=== PATIENT | female | born 1930 | race Caucasian/White ===

== ENCOUNTER 2020-11-17 12:06 | Observation (INO) | payer OTHER ==
[2020-11-17] MEDS ORDERED: CEFTRIAXONE 1000 MG/VIAL ONE ×2 (13:23→20:33)
[2020-11-17] MEDS ORDERED: NA CHLORIDE 0.9% 1,000 ML ONE ×2 (13:23→16:52)
--- NOTE | 2020-11-17 14:18 | RAD REPORT ---
EXAM DESCRIPTION: RAD - Chest Single View - 11/17/2020 1:36 pm CLINICAL HISTORY: SOB COMPARISON: Chest Pa And Lat (2 Views) dated 11/09/2020 FINDINGS: Re- demonstrated possible right-sided lung mass with irregular opacities throughout the ri ght lung. The left lung is clear. Aortic atherosclerosis. No fractures seen. Visualized upper abdomen is unremarkable. IMPRESSION: Possible right-sided lung mass and other irregular opacities in the right lung. Chest CT could further evaluate.
[2020-11-17 15:00] LABS: ALT/SGPT 44 U/L (12-78); AST/SGOT 25 U/L (15-37); Albumin 4.3 g/dL (3.4-5.0); Alkaline Phosphatase 74 U/L (45-117); BUN Blood Urea Nitrogen 12 mg/dL (7-18); Bicarbonate 16 mmol/L (21-32); Bilirubin Direct 0.2 mg/dL (0-0.2); Bilirubin Total 1.2 mg/dL (0.2-1.0); Glucose Level 166 mg/dL (74-106); Magnesium 2.5 mg/dL (1.8-2.4); NT PRO-BNP 23 pg/mL (<450); Potassium 3.5 mmol/L (3.5-5.1); Protein, Total 8.3 g/dL (6.4-8.2); Sodium Level 139 mmol/L (136-145); Troponin (Emerg Dept Use Only) < 0.02 ng/mL (0.0-0.045)
[2020-11-17 15:26] LABS: Absolute Lymphocytes (CBC) 2.1 K/uL (0.7-4.9); Basophils % 0.8 % (0-1.3); Hematocrit 35.1 % (36.0-45.0); Lymphocytes % 21.3 % (15.3-44.8); MPV 10.4 fL (7.6-11.3); RBC Red Blood Cell Count 3.94 M/uL (3.86-4.86)
[2020-11-17 15:31] LABS: Protime INR 1.23
[2020-11-17 15:52] LABS: Urine Bacteria <20 /HPF (<20); Urine RBC <5 /HPF (NONE SEEN)
--- NOTE | 2020-11-17 16:46 | ER ---
Nurse's Notes [facility] Name: Anh Lockwood Age: 89 yrs Sex: Female : 1930 Arrival Date: 11/17/2020 Time: 12:20 Bed 13 Private MD: Diagnosis: Muscle weakness (generalized);Acute cystitis Presentation: 11/17 12:21 Chief complaint: EMS states: Fatigue, weakness, SOB. recently diagnosed with a UTI on oh thursday. Coronavirus screen: Vaccine status: Patient reports receiving the 2nd dose of the covid vaccine. Ebola Screen: No symptoms or risks identified at this time. Initial Sepsis Screen: Does the patient meet any 2 criteria? No. Patient's initial sepsis screen is negative. Does the patient have a suspected source of infection? Yes: Dysuria/Frequency/Urgency/UTI. Risk Assessment: Do you want to hurt yourself or someone else? Patient reports no desire to harm self or others. Onset of symptoms was November 10, 2020. 12:21 Method Of Arrival: EMS: [facility] [place] 12:21 Acuity: MAITE 3 oh Triage Assessment: 12:27 General: Appears comfortable, Behavior is calm, cooperative, appropriate for age, oh Reports Weakness x 1 week, recently diagnosed with UTI, per pt found a spot on her kidney scheduled for a CT on thursday. Pain: Denies pain. Respiratory: Reports shortness of breath. Historical: - Allergies: 12:26 No Known Allergies; oh - Immunization history:: Adult Immunizations up to date, Client reports receiving the 2nd dose of the Covid vaccine, . - Social history:: Smoking status: Patient denies any tobacco usage or history of. - Family history:: not pertinent. Screenin:29 Abuse screen: Denies threats or abuse. Nutritional screening: No deficits noted. oh Tuberculosis screening: No symptoms or risk factors identified. Fall Risk Gait- Weak (10 pts.). Assessment: 12:28 Cardiovascular: Reports fatigue, shortness of breath, stent placed 1 year ago. oh Respiratory: Reports shortness of breath. 12:30 Cardiovascular: Rhythm is sinus rhythm. oh 17:53 Reassessment: report given to MARY montoya. oh Vital Signs: 12:21 BP 127 / 61; Pulse 80; Resp 20; Pulse Ox 96% on R/A; Weight 81.65 kg; Height 5 ft. 5 oh in. (165.10 cm); Pain 0/10; 17:54 BP 104 / 54; Pulse 78; Resp 19; Temp 97.3; Pulse Ox 100% on 1 lpm NC; oh 12:21 Body Mass Index 29.95 (81.65 kg, 165.10 cm) oh ED Course: 12:20 Patient arrived in ED. oh 12:23 Inserted saline lock: 20 gauge in left antecubital area, using aseptic technique. Blood oh collected. 12:24 Oumou Presley MD is Attending Physician. ma2 12:26 Triage completed. oh 12:29 Patient has correct armband on for positive identification. Placed in gown. Bed in low oh position. Call light in reach. Side rails up X2. Adult w/ patient. 12:30 Christian Plasencia, MARY is Primary Nurse. oh 13:30 Blood Culture Adult (2) Sent. oh 13:36 XRAY Chest (1 view) In Process Unspecified. EDMS 16:45 Lc Huerta MD is Hospitalizing Provider. ma2 Administered Medications: 12:32 Drug: NS 0.9% 1000 ml Route: IV; Rate: 1 bolus; Site: left antecubital; oh 13:30 Drug: Rocephin (cefTRIAXone) 1 grams Route: IV; Rate: calculated rate; Site: left oh antecubital; Outcome: 16:46 Decision to Hospitalize by Provider. ma2 17:55 Admitted to Med/surg oh 17:55 Condition: stable 18:16 Patient left the ED. oh Signatures: Dispatcher [employer] EDMS Oumou Presley MD MD ma2 Christian Plasencia, RN RN oh Corrections: (The following items were deleted from the chart) 13:36 12:55 CORONAVIRUS+LABDOMINGO drawn and sent. oh EDMS
--- NOTE | 2020-11-17 16:46 | EDPHYS ---
Physician Documentation [facility] Name: Anh Lockwood Age: 89 yrs Sex: Female : 1930 Arrival Date: 11/17/2020 Time: 12:20 Bed 13 Private MD: ED Physician Oumou Presley HPI: 11/17 12:49 This 89 yrs old Female presents to ER via EMS with complaints of weakness. ma2 12:49 Onset: The symptoms/episode began/occurred gradually, 1 day(s) ago. Associated signs ma2 and symptoms: Pertinent negatives: productive cough, fever, hemoptysis, nausea. Severity of symptoms: At their worst the symptoms were moderate in the emergency department the symptoms are unchanged. The patient has not experienced similar symptoms in the past. Patient is being treated for UTI, with oral antibiotics, presented with generalized weakness for 1 day,. Historical: - Allergies: 12:26 No Known Allergies; oh - Immunization history:: Adult Immunizations up to date, Client reports receiving the 2nd dose of the Covid vaccine, . - Social history:: Smoking status: Patient denies any tobacco usage or history of. - Family history:: not pertinent. ROS: 12:49 Constitutional: Negative for fever, chills, and weight loss. ma2 12:49 All other systems are negative. Exam: 12:49 Constitutional: This is a well developed, well nourished patient who is awake, alert, ma2 and in no acute distress. Head/Face: Normocephalic, atraumatic. Eyes: Pupils equal round and reactive to light, extra-ocular motions intact. Lids and lashes normal. Conjunctiva and sclera are non-icteric and not injected. Cornea within normal limits. Periorbital areas with no swelling, redness, or edema. ENT: Nares patent. No nasal discharge, no septal abnormalities noted. Tympanic membranes are normal and external auditory canals are clear. Oropharynx with no redness, swelling, or masses, exudates, or evidence of obstruction, uvula midline. Mucous membranes moist. Neck: Trachea midline, no thyromegaly or masses palpated, and no cervical lymphadenopathy. Supple, full range of motion without nuchal rigidity, or vertebral point tenderness. No Meningismus. Chest/axilla: Normal chest wall appearance and motion. Nontender with no deformity. No lesions are appreciated. Cardiovascular: Regular rate and rhythm with a normal S1 and S2. No gallops, murmurs, or rubs. Normal PMI, no JVD. No pulse deficits. Respiratory: Lungs have equal breath sounds bilaterally, clear to auscultation and percussion. No rales, rhonchi or wheezes noted. No increased work of breathing, no retractions or nasal flaring. Abdomen/GI: Soft, non-tender, with normal bowel sounds. No distension or tympany. No guarding or rebound. No evidence of tenderness throughout. Back: No spinal tenderness. No costovertebral tenderness. Full range of motion. Skin: Warm, dry with normal turgor. Normal color with no rashes, no lesions, and no evidence of cellulitis. MS/ Extremity: Pulses equal, no cyanosis. Neurovascular intact. Full, normal range of motion. Neuro: Awake and alert, GCS 15, oriented to person, place, time, and situation. Cranial nerves II-XII grossly intact. Motor strength 5/5 in all extremities. Sensory grossly intact. Cerebellar exam normal. Normal gait. Vital Signs: 12:21 BP 127 / 61; Pulse 80; Resp 20; Pulse Ox 96% on R/A; Weight 81.65 kg; Height 5 ft. 5 oh in. (165.10 cm); Pain 0/10; 17:54 BP 104 / 54; Pulse 78; Resp 19; Temp 97.3; Pulse Ox 100% on 1 lpm NC; oh 12:21 Body Mass Index 29.95 (81.65 kg, 165.10 cm) oh MDM: 12:49 Differential diagnosis: Bronchitis reactive airway disease, uti sepsis vs electrolyte ma2 abnormalities. 16:44 Data reviewed: vital signs, nurses notes, EMS record, [facility] records. Counseling: ma2 I had a detailed discussion with the patient and/or guardian regarding: the historical points, exam findings, and any diagnostic results supporting the discharge/admit diagnosis, the presence of at least one elevated blood pressure reading (>120/80) during this emergency department visit, the need for further work-up and treatment in the hospital. ED course: Discussed with Dr. Huerta , patient has UTI, likely partially treated, however she has generalized weakness unable to walk due to generalized weakness. She does have right lung mass on chest x-ray, although she does not have any respiratory symptoms at this time, she does need CT chest. To further evaluate. I discussed with Dr. Huerta, will admit the patient with ivf and ab and order ct chest . 16:46 Patient medically screened. sc2 11/17 12:27 Order name: Basic Metabolic Panel; Complete Time: 16:05 sc2 11/17 12:27 Order name: CBC with Diff; Complete Time: 15:53 sc2 11/17 12:27 Order name: LFT's; Complete Time: 16:05 sc2 11/17 12:27 Order name: Magnesium; Complete Time: 16:05 sc2 11/17 12:27 Order name: NT PRO-BNP; Complete Time: 16:05 sc2 11/17 12:27 Order name: PT-INR; Complete Time: 15:53 sc2 11/17 12:27 Order name: Troponin (emerg Dept Use Only); Complete Time: 16:05 sc2 11/17 12:32 Order name: Blood Culture Adult (2) [facility] 11/17 12:32 Order name: Urine Microscopic Only; Complete Time: 16:05 sc2 11/17 14:09 Order name: Glucose, Ancillary Testing; Complete Time: 14:27 EDMS 11/17 14:28 Order name: SARS-COV-2 RT PCR; Complete Time: 15:05 EDMS 11/17 16:56 Order name: Basic Metabolic Panel [facility] 11/17 16:56 Order name: Basic Metabolic Panel [facility] 11/17 12:27 Order name: XRAY Chest (1 view); Complete Time: 14:27 sc2 11/17 12:27 Order name: EKG; Complete Time: 12:28 sc2 11/17 12:27 Order name: Cardiac monitoring; Complete Time: 12:54 sc2 11/17 12:27 Order name: EKG - Nurse/Tech; Complete Time: 12:54 ma2 11/17 12:27 Order name: IV Saline Lock; Complete Time: 12:54 sc2 11/17 12:27 Order name: Labs collected and sent; Complete Time: 12:54 sc2 11/17 12:27 Order name: O2 Per Protocol; Complete Time: 12:54 sc2 11/17 12:27 Order name: O2 Sat Monitoring; Complete Time: 12:54 sc2 11/17 12:32 Order name: Accucheck; Complete Time: 14:57 ma2 11/17 12:32 Order name: IV Saline Lock - Large Bore; Complete Time: 14:57 ma2 11/17 16:44 Order name: CT Chest W/ Con ma2 11/17 16:56 Order name: CBC with Automated Diff EDMS 11/17 16:56 Order name: CBC with Automated Diff EDMS 11/17 17:11 Order name: CT; Complete Time: 17:16 EDMS 11/17 12:32 Order name: Urine Dipstick-Ancillary (obtain specimen) ma2 11/17 13:03 Order name: Labs - recollect needed: recollect labs hemolyzed; Complete Time: 15:38 eb Administered Medications: 12:32 Drug: NS 0.9% 1000 ml Route: IV; Rate: 1 bolus; Site: left antecubital; oh 13:30 Drug: Rocephin (cefTRIAXone) 1 grams Route: IV; Rate: calculated rate; Site: left oh antecubital; Disposition Summary: 11/17/20 16:46 Hospitalization Ordered Hospitalization Status: Observation sc2 Provider: Lc Huerta [facility] Location: Telemetry/MedSurg (Inpatient) ma2 Condition: Stable ma2 Problem: new ma2 Symptoms: are unchanged ma2 Bed/Room Type: Standard [facility](11/17/20 17:10) eb Diagnosis - Muscle weakness (generalized) ma2 - Acute cystitis ma2 Forms: - Medication Reconciliation Form ma2 - SBAR form ma2 Signatures: Dispatcher [employer] EDLA Oumou Presley MD MD ma2 Nolvia Morley Oneka RN RN oh Corrections: (The following items were deleted from the chart) 13:36 12:28 CORONAVIRUS+BRZ ordered. EDMS EDMS 17:10 16:46 ma2 eb
[2020-11-17] MEDS: NA CHLORIDE 0.9% 1,000 ML IV SCH (17:00)
--- NOTE | 2020-11-17 17:10 | RAD REPORT ---
EXAM DESCRIPTION: CT - Thorax W/ Con - 11/17/2020 5:01 pm CLINICAL HISTORY: right sided lung mass COMPARISON: Chest Single View dated 11/17/2020 FINDINGS: Chest Wall: No suspicious thyroid nodules or pathologic lymphadenopathy. Lungs: Several pulmonary nodules are noted bilaterally. Air bronchograms and masslike subpleural thic kening is present in the right lower lobe. There are other scattered areas of ill-defined opacities. Pleura: Small right pleural effusion. Mediastinum/rayshawn: No pathologic lymphadenopathy. Pulmonary arteries/Aorta: No filling defect identified. No aortic aneurysm. Heart: No significant pericardial effusion. Normal heart size. Multi-vessel coronary artery disease. Upper abdomen: Multiple low-density lesions in the liver. Right renal lesion which is likely a cyst. Bones: No acute abnormality. All CT scans are performed using dose optimization technique as appropriate and may include automated exposure control or mA/KV adjustment according to patient size. IMPRESSION: Right hilar soft tissue and masslike subpleural thickening in the right lower lobe may r epresent a primary bronchogenic carcinoma but can also be seen with round atelectasis. Note that ther e are numerous liver lesions which are highly concerning for metastatic disease. If clinically indica [place], liver biopsy could confirm primary site.
[2020-11-17] MEDS ORDERED: ALPRAZOLAM 0.25 MG TABLET PO PRN (18:33)
[2020-11-17] MEDS ORDERED: NA CHLORIDE 0.9% 50 ML ONE (20:33)
[2020-11-17] MEDS: INSULIN -REGULAR HUMAN 50 UNIT/0.5 ML ML SQ SCH (21:00)
[2020-11-17] MEDS: CEFTRIAXONE 1 GM/NS 50 ML 1 GM/50 ML BAG IV SCH (21:00)
[2020-11-17 21:02] VITALS: BMI 29.9
--- NOTE | 2020-11-17 21:42 | P.HP ---
Certification for Inpatient Patient admitted to: Observation With expected LOS: <2 Midnights Practitioner: I am a practitioner with admitting privileges, knowledge of patient current condition, hospital course, and medical plan of care. Services: Services provided to patient in accordance with Admission requirements found in Title 42 Section 412.3 of the Code of Federal Regulations Patient History Date of Service: 11/17/20 Reason for admission: WEAK, CHILLS History of Present Illness: HAS SYMPTOMS OF CHILLS AND WEAKNESS FOR A FEW DAYS. SHE DOES NOT HAVE COUGH, DYSPNEA OR PAIN. SHE DID NOT IMPROVE WITH Z SONNY SO I ASKED FOR CXR AND LAB WORK. CXR SHOWED A POSSIBLE MASS IN R CHEST, MILD UTI AND MILD DEHYDRATION ON LAB. I ASKED HER TO STOP TORSEMIDE SO CREATININE CAN COME DOWN FROM 1.7. SHE IS SCHEDULED TO DO CT SCAN OF CHEST THURSDAY. SEH ENDS UP IN ER FAMILY THOUGHT SHE WAS GENERALLY WEAK. SHE DOES NOT HAVE ANY OTHER SYMPTOMS. Allergies No Known Allergies Allergy (Verified 11/17/20 18:28) Home medications list reviewed: Yes Home Medications: ALPRAZolam [Xanax] 0.25 mg PO TID PRN 11/17/20 Cholecalciferol (Vitamin D3) [Vitamin D3] 50 mcg PO DAILY 11/17/20 Ibuprofen [Advil] 200 mg PO DAILY 11/17/20 Losartan Potassium [Cozaar] 100 mg PO DAILY 11/17/20 Thyroid Tab [[place] Thyroid] 30 mg PO DAILY 11/17/20 bisoproloL fumarate [Zebeta] 5 mg PO DAILY 11/17/20 - Past Medical/Surgical History Has patient received pneumonia vaccine in the past: Yes Diabetic: No -: HTN -: Hypothyroidism -: Skin CA -: Ana -: Hysterectomy -: thyroidectomy - Family History Mother History Unknown: Yes -: Cancer Father History Unknown: Yes -: Heart disease - Social History Smoking Status: Former smoker Alcohol use: No CD- Drugs: No Caffeine use: Yes Place of Residence: Home Review of Systems 10-point ROS is otherwise unremarkable General: Weakness, Malaise Physical Examination - Vital Signs Temperature: 97.7 F Blood Pressure: 135/61 Pulse: 95 Respirations: 18 Pulse Ox (%): 97 - Physical Exam General: Oriented x3, Mild distress HEENT: Atraumatic, PERRLA, Mucous membr. moist/pink, EOMI, Sclerae nonicteric Neck: Supple, 2+ carotid pulse no bruit, No LAD, Without JVD or thyroid abnormality Respiratory: Clear to auscultation bilaterally, Normal air movement Cardiovascular: Regular rate/rhythm, Normal S1 S2 Gastrointestinal: Normal bowel sounds, No tenderness Musculoskeletal: No tenderness Integumentary: No rashes Neurological: Normal gait, Normal speech, Normal strength at 5/5 x4 extr, Normal tone, Normal affect Lymphatics: No axilla or inguinal lymphadenopathy - Studies Laboratory Data (last 24 hrs) 11/17/20 15:11: PT 14.2 H, INR 1.23 11/17/20 15:11: WBC 9.90, Hgb 11.5 L, Hct 35.1 L, Plt Count 124 L 11/17/20 15:11: Sodium 139, Potassium 3.5, BUN 12, Creatinine 1.45 H, Glucose 166 H, Magnesium 2.5 H, Total Bilirubin 1.2 H, AST 25, ALT 44, Alkaline Phosphatase 74 Assessment and Plan - Problems (Diagnosis) (1) Metastatic lung cancer (metastasis from lung to other site) Current Visit: Yes Status: Acute Plan: HER CT SCAN SHOWS R LUNG MASS AND METASTISTIC LESIONS IN THE LIVER. THIS CAN EXPLAIN HER GEN WEAKNESS. I HAD LONG TALK WITH PATIENT AND DAUGHTER. I ADVISED THAT THE EASIEST WAY TO BIOPSY WILL BE LIVER IT IS EASY TO ACCESS. THEY AGREE. I EXPLAINED THAT STAGE 4 CANCER AT THIS AGE MEANS USUALLY NOT MUCH CAN BE DONE ABOUT IT. I ALSO EXPLAINED QUALITY OF LIFE WITHOUT AND WITH CHEMO AT THIS AGE. I EXPLAINED THAT STAGE 4 CANCERS DON'T NEED SURGERY USUALLY. LUNG CANCER CARRIES POOR PROGNOSIS ESPECIALLY STAGE 4. SHE MAY GO HOME IN [facility] AND DO BIOPSY OUTPT. SHE WILL BE A GOOD HOSPICE CANDIDATE AT 89 WITH [employer] - Advance Directives Does patient have a Living Will: Yes Does patient have a Durable POA for Healthcare: Yes
[2020-11-18] MEDS: CEFTRIAXONE 1 GM/NS 50 ML 1 GM/50 ML BAG IV SCH (00:08)
[2020-11-18] MEDS: NA CHLORIDE 0.9% 1,000 ML IV SCH (06:00)
[2020-11-18] MEDS ORDERED: THYROID 30 MG TAB PO SCH (06:00)
[2020-11-18 06:15] LABS: Absolute Lymphocytes (CBC) 2.1 K/uL (0.7-4.9); Basophils % 0.8 % (0-1.3); Hematocrit 33.4 % (36.0-45.0); Lymphocytes % 22.7 % (15.3-44.8); MPV 10.8 fL (7.6-11.3); RBC Red Blood Cell Count 3.71 M/uL (3.86-4.86)
[2020-11-18 06:35] VITALS: O2SAT 91
[2020-11-18 06:49] LABS: Potassium 3.8 mmol/L (3.5-5.1)
[2020-11-18] MEDS: INSULIN -REGULAR HUMAN 50 UNIT/0.5 ML ML SQ SCH (07:30)
[2020-11-18] MEDS ORDERED: NA CHLORIDE 0.9% 1,000 ML IV SCH (07:48)
[2020-11-18 08:17] VITALS: BP 142/63; TEMP 98
[2020-11-18] MEDS ORDERED: HOME MED 1 EA UNK (Cholecalciferol (Vitamin D3) [Vitamin D3] 50 MCG Capsule) PO SCH (09:00)
[2020-11-18] MEDS ORDERED: ENOXAPARIN 30 MG/0.3 ML SQ SCH (09:00)
[2020-11-18] MEDS ORDERED: BISOPROLOL 5 MG TABLET PO SCH ×2 (09:00)
[2020-11-19] MEDS ORDERED: THYROID 30 MG TAB PO SCH (06:00)
== END 2020-11-18 10:58 | disposition home or self-care (01) ==
LOC: ER 12:06 → ERHOLD 16:53 → 2ND 17:59
PROVIDERS: ADMIT Internal Medicine; ATTEND Internal Medicine
DX: C34.91 Malignant neoplasm of unspecified part of right bronchus or lung (principal); C78.7 Secondary malignant neoplasm of liver and intrahepatic bile duct; N39.0 Urinary tract infection, site not specified; E86.0 Dehydration; I10 Essential (primary) hypertension; E89.0 Postprocedural hypothyroidism; Z85.828 Personal history of other malignant neoplasm of skin; Z87.891 Personal history of nicotine dependence; Z20.822 Contact with and (suspected) exposure to COVID-19; Z90.49 Acquired absence of other specified parts of digestive tract; Z90.710 Acquired absence of both cervix and uterus; Z80.9 Family history of malignant neoplasm, unspecified; Z82.49 Family history of ischemic heart disease and other diseases of the circulatory system
CPT/HCPCS: 87040 ×2; 85025 ×2; 80048 ×2; 36415; 83735; 85610; 82947; 80076; 81015; 84484; 83880; 71260; 71045; 96374; 99285; U0003; Q9967; J1650; J7030 ×3; G0378 ×3; J0696

== ENCOUNTER 2020-11-27 08:31 | Day surgery (SDC) | payer OTHER ==
[2020-11-27] MEDS ORDERED: NA CHLORIDE 0.9% 1,000 ML ONE (09:41)
[2020-11-27 11:20] VITALS: BMI 29.0
[2020-11-27 14:27] VITALS: BP 117/45; TEMP 97.3; O2SAT 93
--- NOTE | 2020-11-27 15:07 | RAD REPORT ---
EXAM DESCRIPTION: US - Liver Biopsy Procedure - 11/27/2020 10:07 am CLINICAL HISTORY: MASS Multiple liver masses. COMPARISON: No comparisons FINDINGS: Preoperative diagnosis: Multiple liver masses. Post operative diagnosis: Same. Conscious Sedation: IV conscious sedation was utilized for 45 minutes. IV midazolam and fentanyl said was administered with nursing personnel monitoring. Fluoroscopy time: None Contrast used: None Estimated blood loss: Minimal Specimens:3 x 18 gauge core biopsy specimen The abdomen was prepped and draped in the usual sterile fashion. 1% lidocaine was infiltrated into th e subcutaneous tissues for local anesthesia. Real time ultrasound scanning of the liver demonstrated multiple lesions. Under ultrasound guidance, using a 18-gauge, 6 cm long, 2 cm throw core biopsy gun, 3 specimens were obtained of a mass in the left lobe of the liver and sent to pathology for evaluati on. There were no complications. IMPRESSION: Successful ultrasound-guided core biopsy of left lobe liver mass. 45 minutes of IV conscious sedation was utilized.
== END 2020-11-27 13:40 | disposition home or self-care (01) ==
LOC: DS 08:31
PROVIDERS: ATTEND Internal Medicine
DX: C78.7 Secondary malignant neoplasm of liver and intrahepatic bile duct (principal)
CPT/HCPCS: 88305; 47000; J7030